=== PATIENT | female | born 1980 | race Caucasian/White ===

== ENCOUNTER 2018-05-04 10:29 | Emergency (ER) | payer OTHER ==
[2018-05-04] MEDS ORDERED: LORazepam 2 MG/ML SDV IVPUSH ONE (11:11)
[2018-05-04] MEDS ORDERED: Famotidine 20 MG/2 ML SDV IVPUSH ONE (11:12)
--- NOTE | 2018-05-04 11:14 | EDM.PDOC ---
ED HPI GENERAL MEDICAL PROBLEM - General Chief Complaint: Cardiovascular Problem Stated Complaint: CHEST PAIN, DIZZY Time Seen by Provider: 05/04/18 11:12 Source of Information: Reports: Patient History Limitations: Reports: No Limitations - History of Present Illness INITIAL COMMENTS - FREE TEXT/NARRATIVE: pt was at work and developed alot of pressure anf gurgling under the diaphram on the left. She did become dizzy and she was very clammy. l Onset: Today, Sudden Duration: Hour(s): Location: Reports: Chest, Abdomen Associated Symptoms: Reports: Diaphoresis, Shortness of Breath - Related Data Allergies Allergy/AdvReac Type Severity Reaction Status Date / Time azithromycin Allergy Other Verified 05/04/18 10:47 [From Zithromax Z-Elia] doxycycline Allergy Muscle Verified 05/04/18 10:47 Weakness minocycline Allergy Muscle Verified 05/04/18 10:47 Weakness Sulfa (Sulfonamide Allergy Hives Verified 05/04/18 10:47 Antibiotics) Home Meds: Home Meds Acetaminophen [Tylenol] 325 mg PO Q4H PRN 05/04/18 [History] Ascorbic Acid [Vitamin C] 1 tab PO DAILY 05/04/18 [History] Multivitamin [Multi-Vitamin Daily] 1 tab PO DAILY 05/04/18 [History] metFORMIN HCl [Metformin HCl ER] 500 mg PO DAILY 05/04/18 [History] Past Medical History HEENT History: Reports: Impaired Vision 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: Reports: Hypertension 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: 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, Fibroids Musculoskeletal History: Reports: Other (See Below) Neurological History: Reports: Headaches, Chronic Psychiatric History: Reports: Anxiety, Panic Attack Endocrine/Metabolic History: Reports: Diabetes, Type II, Obesity/BMI 30+ - Infectious Disease History Infectious Disease History: Reports: Chicken Pox - Past Surgical History Head Surgeries/Procedures: Reports: None HEENT Surgical History: Reports: None Cardiovascular Surgical History: Reports: None Endocrine Surgical History: Reports: None Neurological Surgical History: Reports: None Musculoskeletal Surgical History: Reports: Knee Replacement Dermatological Surgical History: Reports: None Social & Family History - Tobacco Use Smoking Status *Q: Never Smoker Second Hand Smoke Exposure: No - Caffeine Use Caffeine Use: Reports: None - Recreational Drug Use Recreational Drug Use: No ED ROS GENERAL - Review of Systems Review Of Systems: See Below Constitutional: Reports: No Symptoms HEENT: Reports: No Symptoms Respiratory: Reports: No Symptoms Cardiovascular: Reports: Other (She had a gurgling sound in the upper abdoman. ) Endocrine: Reports: High Glucose, Other (pt has been out of metformin and has only been taking 1 tab daily. ) GI/Abdominal: Reports: No Symptoms : Reports: No Symptoms Musculoskeletal: Reports: No Symptoms Skin: Reports: No Symptoms ED EXAM, GENERAL - Physical Exam Exam: See Below Free Text/Narrative:: pt had an episode at work--[employer] that she got dizzy and had a sensation of gugling in her upper abdoman. Her bp was 190.107. She did feel dizzy. She has been under alot of stress. Exam Limited By: No Limitations General Appearance: Alert, Anxious, Mild Distress, Other (pupils equal and reactive. ) Ears: Normal TMs Nose: Normal Inspection Throat/Mouth: Normal Inspection Head: Atraumatic Neck: Normal Inspection Respiratory/Chest: No Respiratory Distress Cardiovascular: Regular Rate, Rhythm, Other ( bp was very elevated ) GI/Abdominal: Soft, Non-Tender Rectal (Female) Exam: Deferred Back Exam: Normal Inspection Extremities: Normal Inspection Neurological: Alert, Oriented, Normal Cognition Psychiatric: Anxious, Other (pt has been under alot of stress. ) Course - Vital Signs Last Recorded V/S: Last Vital Signs Temp 35.9 C 05/04/18 10:56 Pulse 87 05/04/18 13:39 Resp 11 L 05/04/18 13:39 BP 173/100 H 05/04/18 13:39 Pulse Ox 98 05/04/18 13:27 - Orders/Labs/Meds Orders: Active Orders 24 hr Category Date Time Status Sodium Chloride 0.9% [Normal Saline] 1,000 ml Med 05/04/18 11:15 Active IV ASDIRECTED Medication Orders Sodium Chloride (Normal Saline) 1,000 mls @ 999 mls/hr IV ASDIRECTED DARCIE Last Admin: 05/04/18 11:20 Dose: 999 mls/hr Labs: Laboratory Tests 05/04/18 05/04/18 05/04/18 Range/Units 11:20 11:20 11:20 WBC 11.3 H (4.5-11.0) K/uL RBC 4.48 (3.30-5.50) M/uL Hgb 14.0 (12.0-15.0) g/dL Hct 40.2 (36.0-48.0) % MCV 90 (80-98) fL MCH 31 (27-31) pg MCHC 35 (32-36) % Plt Count 369 (150-400) K/uL Neut % (Auto) 67 H (36-66) % Lymph % (Auto) 26 (24-44) % P[place] % (Auto) 6 (2-6) % Eos % (Auto) 1 L (2-4) % Baso % (Auto) 1 (0-1) % Sodium 138 L (140-148) mmol/L Potassium 4.0 (3.6-5.2) mmol/L Chloride 99 L (100-108) mmol/L Carbon Dioxide 29 (21-32) mmol/L Anion Gap 14.0 (5.0-14.0) mmol/L BUN 11 (7-18) mg/dL Creatinine 0.8 (0.6-1.0) mg/dL Est Cr Clr Drug Dosing 81.53 mL/min Estimated GFR (MDRD) > 60 (>60) Glucose 221 H (74-106) mg/dL Calcium 9.9 (8.5-10.1) mg/dL Total Bilirubin 0.2 (0.2-1.0) mg/dL AST 18 (15-37) U/L ALT 38 (12-78) U/L Alkaline Phosphatase 82 (46-116) U/L Troponin I < 0.017 (0.000-0.056) ng/mL Total Protein 7.5 (6.4-8.2) g/dL Albumin 3.3 L (3.4-5.0) g/dL Globulin 4.2 H (2.3-3.5) g/dL Albumin/Globulin Ratio 0.8 L (1.2-2.2) Urine Color Urine Appearance Urine pH (4.5-8.0) Ur Specific [place] (1.008-1.030) Urine Protein (NEGATIVE) mg/dL Urine Glucose (UA) (NEGATIVE) mg/dL Urine Ketones (NEGATIVE) mg/dL Urine Occult Blood (NEGATIVE) Urine Nitrite (NEGATIVE) Urine Bilirubin (NEGATIVE) Urine Urobilinogen (NORMAL) mg/dL Ur Leukocyte Esterase (NEGATIVE) Urine RBC (0-5) Urine WBC (0-5) Ur Epithelial Cells Amorphous Sediment Urine Bacteria Urine Mucus Urine Opiates Screen (NEGATIVE) Ur Oxycodone Screen (NEGATIVE) Urine Methadone Screen (NEGATIVE) Ur Propoxyphene Screen (NEGATIVE) Ur Barbiturates Screen (NEGATIVE) Ur Tricyclics Screen (NEGATIVE) Ur Phencyclidine Scrn (NEGATIVE) Ur Amphetamine Screen (NEGATIVE) U Methamphetamines Scrn (NEGATIVE) Urine MDMA Screen (NEGATIVE) U Benzodiazepines Scrn (NEGATIVE) U Cocaine Metab Screen (NEGATIVE) U Marijuana (THC) Screen (NEGATIVE) 05/04/18 05/04/18 Range/Units 12:32 12:47 WBC (4.5-11.0) K/uL RBC (3.30-5.50) M/uL Hgb (12.0-15.0) g/dL Hct (36.0-48.0) % MCV (80-98) fL MCH (27-31) pg MCHC (32-36) % Plt Count (150-400) K/uL Neut % (Auto) (36-66) % Lymph % (Auto) (24-44) % P[place] % (Auto) (2-6) % Eos % (Auto) (2-4) % Baso % (Auto) (0-1) % Sodium (140-148) mmol/L Potassium (3.6-5.2) mmol/L Chloride (100-108) mmol/L Carbon Dioxide (21-32) mmol/L Anion Gap (5.0-14.0) mmol/L BUN (7-18) mg/dL Creatinine (0.6-1.0) mg/dL Est Cr Clr Drug Dosing mL/min Estimated GFR (MDRD) (>60) Glucose (74-106) mg/dL Calcium (8.5-10.1) mg/dL Total Bilirubin (0.2-1.0) mg/dL AST (15-37) U/L ALT (12-78) U/L Alkaline Phosphatase (46-116) U/L Troponin I (0.000-0.056) ng/mL Total Protein (6.4-8.2) g/dL Albumin (3.4-5.0) g/dL Globulin (2.3-3.5) g/dL Albumin/Globulin Ratio (1.2-2.2) Urine Color Yellow Urine Appearance Slightly cloudy Urine pH 7.0 (4.5-8.0) Ur Specific [place] 1.015 (1.008-1.030) Urine Protein Negative (NEGATIVE) mg/dL Urine Glucose (UA) Normal (NEGATIVE) mg/dL Urine Ketones Negative (NEGATIVE) mg/dL Urine Occult Blood Trace (NEGATIVE) Urine Nitrite Negative (NEGATIVE) Urine Bilirubin Negative (NEGATIVE) Urine Urobilinogen Normal (NORMAL) mg/dL Ur Leukocyte Esterase Negative (NEGATIVE) Urine RBC 0-5 (0-5) Urine WBC 0-5 (0-5) Ur Epithelial Cells Few Amorphous Sediment Not seen Urine Bacteria Few Urine Mucus Not seen Urine Opiates Screen Negative (NEGATIVE) Ur Oxycodone Screen Negative (NEGATIVE) Urine Methadone Screen Negative (NEGATIVE) Ur Propoxyphene Screen Negative (NEGATIVE) Ur Barbiturates Screen Negative (NEGATIVE) Ur Tricyclics Screen Negative (NEGATIVE) Ur Phencyclidine Scrn Negative (NEGATIVE) Ur Amphetamine Screen Negative (NEGATIVE) U Methamphetamines Scrn Negative (NEGATIVE) Urine MDMA Screen Negative (NEGATIVE) U Benzodiazepines Scrn Negative (NEGATIVE) U Cocaine Metab Screen Negative (NEGATIVE) U Marijuana (THC) Screen Negative (NEGATIVE) Meds: Medications Generic Name Dose Route Start Last Admin Trade Name Freq PRN Reason Stop Dose Admin Sodium Chloride 1,000 mls @ 999 mls/hr 05/04/18 11:15 05/04/18 11:20 Normal Saline IV 999 mls/hr ASDIRECTED DARCIE Administration Discontinued Medications Generic Name Dose Route Start Last Admin Trade Name Freq PRN Reason Stop Dose Admin Famotidine 20 mg 05/04/18 11:12 05/04/18 11:22 Pepcid IVPUSH 05/04/18 11:13 20 mg ONETIME ONE Administration Labetalol HCl 20 mg 05/04/18 13:00 05/04/18 12:59 Normodyne IVPUSH 05/04/18 13:01 20 mg ONETIME ONE Administration Protocol Labetalol HCl 20 mg 05/04/18 13:22 05/04/18 13:37 Normodyne IVPUSH 05/04/18 13:23 20 mg NOW ONE Administration Protocol Lorazepam 0.5 mg 05/04/18 11:11 05/04/18 11:24 Ativan IVPUSH 05/04/18 11:12 0.5 mg ONETIME ONE Administration - Re-Assessments/Exams Free Text/Narrative Re-Assessment/Exam: 05/04/18 13:57 pt was given labetiol 20mg twic.e She was given lisinopril 2.5 po. Pt was given a liter of fluid. She has a bs of 200, She cut back on her metformin cause she was running out Departure - Departure Time of Disposition: 14:05 Disposition: Home, Self-Care 01 Condition: Fair Clinical Impression: Hyperglycemia, Hypertension, Anxiety Referrals: PCP,None [Primary Care Provider] - Forms: ED Department Discharge Care Plan Goals: appt for bp check in 4-5 days, send a copy of her lab work with the pt. lisinopril 5 mg daily for bp. - My Orders Last 24 Hours: My Active Orders 05/04/18 11:15 Sodium Chloride 0.9% [Normal Saline] 1,000 ml IV ASDIRECTED - Assessment/Plan Last 24 Hours: My Active Orders 05/04/18 11:15 Sodium Chloride 0.9% [Normal Saline] 1,000 ml IV ASDIRECTED
[2018-05-04] MEDS ORDERED: Sodium Chloride 0.9% 1,000 ML IV SCH (11:15)
[2018-05-04] MEDS ORDERED: Labetalol 100 MG/20 ML MDV IVPUSH ONE (12:46)
[2018-05-04] MEDS ORDERED: Labetalol 20 MG/4 ML Syringe IVPUSH ONE ×2 (13:00→13:22)
[2018-05-04] MEDS ORDERED: Lisinopril 5 MG Tab ONE (14:21)
[2018-05-05] MEDS ORDERED: Lisinopril 2.5 MG Tab PO ONE (14:12)
== END 2018-05-04 14:30 | disposition home or self-care (01) ==
LOC: JP.ED 10:29
DX: E11.65 Type 2 diabetes mellitus with hyperglycemia (principal); F41.9 Anxiety disorder, unspecified; I10 Essential (primary) hypertension; Z79.84 Long term (current) use of oral hypoglycemic drugs; Z88.1 Allergy status to other antibiotic agents; Z88.2 Allergy status to sulfonamides; Z79.899 Other long term (current) drug therapy
CPT/HCPCS: 36415; 80053; 80305; 81001; 84484; 85025; 96361; 96374; 96375; 96376; 99285; A9270; J2060; J3490; J7030; 93005

== ENCOUNTER 2019-10-08 20:20 | Emergency (ER) | payer OTHER ==
--- NOTE | 2019-10-08 21:04 | EDM.PDOC ---
<Meera Strickland - Last Filed: 10/08/19 21:03> ED HPI GENERAL MEDICAL PROBLEM - General Chief Complaint: Back Pain or Injury Stated Complaint: UPPER LT SIDE BACK PRESSURE Time Seen by Provider: 10/08/19 20:55 - Related Data Allergies Allergy/AdvReac Type Severity Reaction Status Date / Time azithromycin Allergy Other Verified 10/08/19 21:06 [From Zithromax Z-Elia] doxycycline Allergy Muscle Verified 10/08/19 21:06 Weakness minocycline Allergy Muscle Verified 10/08/19 21:06 Weakness Sulfa (Sulfonamide Allergy Hives Verified 10/08/19 21:06 Antibiotics) Home Meds: Home Meds Acetaminophen [Tylenol] 325 mg PO Q4H PRN 05/04/18 [History] Ascorbic Acid [Vitamin C] 1 tab PO DAILY 05/04/18 [History] Multivitamin [Multi-Vitamin Daily] 1 tab PO DAILY 05/04/18 [History] metFORMIN HCl [Metformin HCl ER] 500 mg PO DAILY 05/04/18 [History] lisinopriL [Lisinopril] 10 mg PO DAILY 10/08/19 [History] Past Medical History HEENT History: Reports: Impaired Vision 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: Reports: Hypertension 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, 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 Musculoskeletal History: Reports: Other (See Below) Neurological History: Reports: Headaches, Chronic Psychiatric History: Reports: Anxiety, Panic Attack Endocrine/Metabolic History: Reports: Diabetes, Type II, Obesity/BMI 30+ - Infectious Disease History Infectious Disease History: Reports: Chicken Pox - Past Surgical History Head Surgeries/Procedures: Reports: None HEENT Surgical History: Reports: None Cardiovascular Surgical History: Reports: None Endocrine Surgical History: Reports: None Neurological Surgical History: Reports: None Musculoskeletal Surgical History: Reports: Knee Replacement Dermatological Surgical History: Reports: None Social & Family History - Caffeine Use Caffeine Use: Reports: None Course - Vital Signs Last Recorded V/S: Last Vital Signs Temp 36.5 C 10/08/19 21:15 Pulse 93 10/08/19 21:15 Resp 18 10/08/19 21:15 BP 151/92 H 10/08/19 21:15 Pulse Ox 97 10/08/19 21:15 - Orders/Labs/Meds Orders: Active Orders 24 hr Category Date Time Status EKG Documentation Completion [RC] ASDIRECTED Care 10/08/19 21:33 Active EKG 12 Lead [EK] Routine Ther 10/08/19 21:33 Ordered Labs: Laboratory Tests 10/08/19 10/08/19 Range/Units 21:27 21:42 Troponin I < 0.017 (0.000-0.056) ng/mL Urine Color Yellow (YELLOW) Urine Appearance Clear (CLEAR) Urine pH 6.0 (5.0-8.0) Ur Specific [place] 1.015 (1.008-1.030) Urine Protein Negative (NEGATIVE) mg/dL Urine Glucose (UA) Negative (NEGATIVE) mg/dL Urine Ketones Negative (NEGATIVE) mg/dL Urine Occult Blood Negative (NEGATIVE) Urine Nitrite Negative (NEGATIVE) Urine Bilirubin Negative (NEGATIVE) Urine Urobilinogen 0.2 (0.2-1.0) EU/dL Ur Leukocyte Esterase Negative (NEGATIVE) Urine RBC 0-5 (0-5) Urine WBC Not seen (0-5) Ur Epithelial Cells Rare Amorphous Sediment Not seen Urine Bacteria Not seen Urine Mucus Not seen Departure - Departure Disposition: Home, Self-Care 01 Clinical Impression: Flank pain - Discharge Information Instructions: Muscle Strain, [id number], Flank Pain, Adult, [id number] Referrals: Bessie Coombs MD [Primary Care Provider] - Forms: ED Department Discharge Additional Instructions: Your work-up in the ER was re-assuring. We believe your pain is likely due to muscle strain. Please make a follow up appointment with your primary doctor if your symptoms persist. Sepsis Event Note (ED) - Focused Exam Vital Signs: Vital Signs Temp Pulse Resp BP Pulse Ox 10/08/19 21:15 36.5 C 93 18 151/92 H 97 10/08/19 20:56 36.5 C 93 18 151/92 H 97 - My Orders Last 24 Hours: My Active Orders 10/08/19 21:33 EKG Documentation Completion [RC] ASDIRECTED EKG 12 Lead [EK] Routine - Assessment/Plan Last 24 Hours: My Active Orders 10/08/19 21:33 EKG Documentation Completion [RC] ASDIRECTED EKG 12 Lead [EK] Routine <Rex Musa - Last Filed: 10/08/19 23:07> ED HPI GENERAL MEDICAL PROBLEM - General Source of Information: Reports: Patient History Limitations: Reports: No Limitations - History of Present Illness INITIAL COMMENTS - FREE TEXT/NARRATIVE: This is a 39-year-old female presents with concerns of left-sided flank and back pain. Symptoms started approximately 36 hours ago. She has noticed persistent pain in the left flank as well as up towards the middle of her back between the shoulder blades. She does report that she did some stretching and lifting the day prior to onset of symptoms. She had no fevers or chills. No urinary symptoms. No dyspnea. Pain is not pleuritic. No lower extremity swelling or pain. She has no history of cardiac disease, although several first -degree family members with significant coronary disease. She is primarily here because she is concerned about this being cardiac. Middle Back Pain Score (Numeric/FACES): 4 ED ROS GENERAL - Review of Systems Review Of Systems: See Below Constitutional: Reports: No Symptoms HEENT: Reports: No Symptoms Respiratory: Reports: No Symptoms Cardiovascular: Reports: No Symptoms Endocrine: Reports: No Symptoms GI/Abdominal: Reports: No Symptoms : Reports: Flank Pain Musculoskeletal: Reports: No Symptoms Skin: Reports: No Symptoms Neurological: Reports: No Symptoms Psychiatric: Reports: No Symptoms Hematologic/Lymphatic: Reports: No Symptoms Immunologic: Reports: No Symptoms ED EXAM,LOWER BACK PAIN/INJURY - Physical Exam Exam: See Below Exam Limited By: No Limitations General Appearance: Alert, No Apparent Distress Ears: Normal External Exam Nose: Normal Inspection Throat/Mouth: Normal Inspection Head: Atraumatic, Normocephalic Neck: Normal Inspection Respiratory/Chest: No Respiratory Distress, Lungs Clear Cardiovascular: Regular Rate, Rhythm GI/Abdominal: Soft, Non-Tender Back Exam: Normal Inspection, Full Range of Motion, Other (No tenderness to palpation). No: CVA Tenderness (R), CVA Tenderness (L) Extremities: Normal Inspection Neurological: Alert, Normal Mood/Affect Psychiatric: Normal Affect, Normal Mood Skin Exam: Warm, Dry Course - Re-Assessments/Exams Free Text/Narrative Re-Assessment/Exam: This is a 39-year-old presents with left flank and back pain. On exam she found to have normal vitals, benign physical exam. She is primarily concerned this is cardiac in nature, EKG is nonischemic and troponin obtained after approximately 9 hours of maximal pain is negative. Low concern that this is cardiac. Do not think this is PE, she is PERC negative. No infectious symptoms to suggest pyelonephritis. UA unremarkable. Symptoms seem most consistent with musculoskeletal nature. We discussed supportive treatments. Will return for worsening. Discharge. 10/08/19 23:06 Departure - Departure Time of Disposition: 22:37 Condition: Good - Discharge Information *PRESCRIPTION DRUG MONITORING PROGRAM REVIEWED*: No *COPY OF PRESCRIPTION DRUG MONITORING REPORT IN PATIENT ELIZABETH: No
== END 2019-10-08 22:58 | disposition home or self-care (01) ==
LOC: JP.ED 20:20
DX: R10.9 Unspecified abdominal pain (principal); E66.9 Obesity, unspecified; Z68.41 Body mass index [BMI] 40.0-44.9, adult; E11.9 Type 2 diabetes mellitus without complications; Z79.84 Long term (current) use of oral hypoglycemic drugs; Z79.899 Other long term (current) drug therapy; Z88.1 Allergy status to other antibiotic agents; Z88.2 Allergy status to sulfonamides
CPT/HCPCS: 36415; 81001; 84484; 93005; 99284-25